=== PATIENT | female | born 1985 | race Caucasian/White ===

== ENCOUNTER 2017-04-21 20:21 | Emergency (ER) | payer OTHER ==
[~2017-04-21] VITALS: Ht 152.4 cm; Wt 91.2 kg
--- NOTE | 2017-04-21 21:50 | Diagnostic Imaging Report ---
EXAM: CHEST 2 VIEWS, PA and lateral DATE: 04/21/2017 9:10 PM Time stamp on exam: 4 hours INDICATION: Cough, congestion COMPARISON: None FINDINGS: LINES/TUBES: None LUNGS: No consolidations or edema. PLEURA: No effusions or pneumothorax. HEART AND MEDIASTINUM: Normal size and contour. BONES AND SOFT TISSUES: No acute findings. IMPRESSION: No evidence of pneumonia. Signed by: Dr. Sera Pang M.D. on 04/21/2017 9:46 PM
[2017-04-21 22:22] VITALS: BP 133/84
== END 2017-04-21 22:24 | disposition home or self-care (01) ==
LOC: ER 20:21
DX: R50.9 Fever, unspecified (principal); R05 Cough; J02.9 Acute pharyngitis, unspecified; J01.00 Acute maxillary sinusitis, unspecified
CPT/HCPCS: 71020; 87400; 99283

== ENCOUNTER 2018-02-06 20:01 | Emergency (ER) | payer OTHER ==
[~2018-02-06] VITALS: Ht 152.4 cm; Wt 85.7 kg
--- OUTSIDE RECORDS SUMMARY | 2018-02-06 20:03 | XMS REPORT | Clinical Summary ---
Author Author [facility] Address Unknown Phone Unavailable Care Team Providers Care Dental Hygiene Instructor Name Role Phone Nan Brand MD PCP Unavailable Allergies Active Allergy Reactions Severity Noted Date Comments Aspirin 10/04/2017 Penicillins 10/04/2017 Current Medications Prescription Sig. Disp. Refills Start End Date Status Date meclizine (ANTIVERT) 25 Take 1 tablet (25 mg 15 tablet 0 10/05/19 Active mg tablet total) by mouth 3 (three) 18 times a day as needed for dizziness or nausea for up to 15 doses. ondansetron ODT (ZOFRAN Take 1 tablet (4 mg 15 tablet 0 10/05/19 Active ODT) 4 MG disintegrating total) by mouth every 8 18 tablet (eight) hours as needed for nausea or vomiting for up to 15 doses. Active Problems Not on file Encounters Date Type Specialty Care Team Description 10/04/2017 Emergency Emergency Medicine Martin Elder, Vertigo (Primary Dx); DO Non-intractable vomiting with nausea, unspecified vomiting type after 02/05/2017 Social History Tobacco Use Types Packs/Day Years Used Date Never Smoker Smokeless Tobacco: Never Used Alcohol Use Drinks/Week oz/Week Comments No Sex Assigned at Date Recorded Not on file Last Filed Vital Signs Vital Sign Reading Time Taken Blood Pressure 115/85 10/04/2017 1:17 PM CDT Pulse 77 10/04/2017 1:17 PM CDT Temperature 36.4 C (97.5 F) 10/04/2017 1:17 PM CDT Respiratory Rate 20 10/04/2017 1:17 PM CDT Oxygen Saturation 99% 10/04/2017 1:17 PM CDT Inhaled Oxygen - - Concentration Weight 87.1 kg (192 lb) 10/04/2017 10:04 AM CDT Height 152.4 cm (5') 10/04/2017 10:04 AM CDT Body Mass Index 37.5 10/04/2017 10:04 AM CDT Plan of Treatment Health Maintenance Due Date Last Done Comments CERVICAL CANCER SCREENING 11/13/2004 INFLUENZA VACCINE 11/08/2017 Procedures Procedure Name Priority Date/Time Associated Diagnosis Comments CT HEAD WO CONTRAST STAT 10/04/2017 Results for this 12:01 PM CDT procedure are in the results section. ECG 12-LEAD STAT 10/04/2017 Results for this 10:28 AM CDT procedure are in the results section. ZZESTIMATED GFR STAT 10/04/2017 Results for this 10:27 AM CDT procedure are in the results section. B NATRIURETIC PEPTIDE STAT 10/04/2017 Results for this 10:27 AM CDT procedure are in the results section. TROPONIN STAT 10/04/2017 Results for this 10:27 AM CDT procedure are in the results section. COMPREHENSIVE METABOLIC STAT 10/04/2017 Results for this PANEL 10:27 AM CDT procedure are in the results section. HC COMPLETE BLD COUNT STAT 10/04/2017 Results for this W/AUTO DIFF 10:27 AM CDT procedure are in the results section. POC GLUCOSE Routine 10/04/2017 Results for this 10:10 AM CDT procedure are in the results section. after 02/05/2017 Results * CT Head Wo Contrast (10/04/2017 12:01 PM) Narrative Performed At EXAMINATION: CT HEAD WO CONTRAST RADIANT CLINICAL HISTORY: dizzy COMPARISON:None TECHNIQUE: Noncontrast enhanced images of the brain were obtained from the skull base to the vertex. Both soft tissue and bone reconstruction algorithms were performed. CT imaging was performed with iterative reconstruction technique and/or automated exposure control to reduce radiation dose. FINDINGS: The brain parenchyma is unremarkable. The hoffman-white matter differentiation is preserved. No evidence of acute intra or extra-axial hemorrhage, mass, mass effect or acute territorial infarction. There is no acute hydrocephalus. Basal cisterns are patent. No acute soft tissue hematoma or laceration. Paranasal sinuses shows no acute air-fluid levels. Mild mucoperiosteal thickening ethmoid air cells Mastoid air cells are clear.No skull fractures or aggressive bony lesions. IMPRESSION: No acute intracranial abnormality identified. Mild chronic appearing ethmoid sinusitis [id number] Procedure Note Hm Interface, Radiology Results Incoming - 10/04/2017 12:11 PM CDT EXAMINATION: CT HEAD WO CONTRAST CLINICAL HISTORY: dizzy COMPARISON: None TECHNIQUE: Noncontrast enhanced images of the brain were obtained from the skull base to the vertex. Both soft tissue and bone reconstruction algorithms were performed. CT imaging was performed with iterative reconstruction technique and/or automated exposure control to reduce radiation dose. FINDINGS: The brain parenchyma is unremarkable. The hoffman-white matter differentiation is preserved. No evidence of acute intra or extra-axial hemorrhage, mass, mass effect or acute territorial infarction. There is no acute hydrocephalus. Basal cisterns are patent. No acute soft tissue hematoma or laceration. Paranasal sinuses shows no acute air-fluid levels. Mild mucoperiosteal thickening ethmoid air cells Mastoid air cells are clear. No skull fractures or aggressive bony lesions. IMPRESSION: No acute intracranial abnormality identified. Mild chronic appearing ethmoid sinusitis [id number] Performing Organization Address [facility] Phone Number [facility] [address] [place] [address] * ECG 12 lead (10/04/2017 10:28 AM) Ventricular rate 84 [facility] Atrial rate 84 [facility] DC interval 162 [facility] QRSD interval 80 [facility] QT interval 360 [facility] QTC interval 425 [facility] P axis 1 20 [facility] QRS axis 1 41 [facility] T wave axis 27 [facility] EKG impression Normal sinus rhythm-Cannot [facility] rule out Anterior infarct , age undetermined-Abnormal ECG-In automated comparison with ECG of 26-AUG-2014 20:18,-No significant change was found- Performing Organization Address [facility] Phone Number [facility] [address] [place] [address] * Estimated GFR (10/04/2017 10:27 AM) GFR Non Af Amer >90 mL/min/1.73 m2 [facility] DEPARTMENT OF PATHOLOGY AND GENOMIC MEDICINE GFR Af Amer >90 mL/min/1.73 m2 [facility] DEPARTMENT OF Comment: PATHOLOGY AND Chronic kidney disease: <60 GENOMIC MEDICINE mL/min/1.73m2 Kidney failure: <15 mL/min/1.73m2 The estimated GFR is calculated from the IDMS-traceable Modification of Diet in Renal Disease Equation. The accuracy of the calculation is poor when the creatinine is normal. Calculated values >90 mL/min/1.73m2 are not reported. This equation has not been validated in children (<18 years), women, the elderly (>70 years), or ethnic groups other than Caucasians and Americans. Specimen Plasma specimen Performing Organization Address City/[facility] [place] [address] PATHOLOGY AND [facility] * Troponin (10/04/2017 10:27 AM) Troponin <0.30 0.00 - 0.30 ng/mL [facility] DEPARTMENT OF Comment: PATHOLOGY AND 0.11 - 1.49 GENOMIC MEDICINE ng/mlMay indicate increased risk of acute coronary syndrome. >=1.5 ng/ml Consistent with acute myocardial infarction. The diagnostic value of a single normal or non-diagnostic result is questionable.Serial samples at 2-6 hour intervals are required to rule out acute myocardial injury. Specimen Plasma specimen Performing Organization Address City/[facility] Cent[facility] Phone Number [place] [phone] PATHOLOGY AND [facility]IC[facility] * CBC with platelet and differential (10/04/2017 10:27 AM) WBC 8.0 4.2 - 11.0 k/uL [facility] DEPARTMENT OF PATHOLOGY AND GENOMIC MEDICINE RBC 4.62 4.04 - 5.86 m/uL [facility] DEPARTMENT OF PATHOLOGY AND GENOMIC MEDICINE HGB 13.3 11.5 - 15.3 g/dL [facility] DEPARTMENT OF PATHOLOGY AND GENOMIC MEDICINE HCT 40.5 34.0 - 45.0 % [facility] DEPARTMENT OF PATHOLOGY AND GENOMIC MEDICINE MCV 87.7 80.0 - 98.0 fL [facility] [place] DEPARTMENT OF PATHOLOGY AND GENOMIC MEDICINE MCH 28.8 27.0 - 34.0 pg [facility] DEPARTMENT OF PATHOLOGY AND GENOMIC MEDICINE MCHC 32.8 31.5 - 36.5 g/dL [facility] DEPARTMENT OF PATHOLOGY AND GENOMIC MEDICINE RDW - SD 38.8 37.0 - 51.0 fL [facility] [place] [place] DEPARTMENT OF PATHOLOGY AND GENOMIC MEDICINE MPV 9.3 7.4 - 10.4 fL [facility] DEPARTMENT OF PATHOLOGY AND GENOMIC MEDICINE Platelet count 396 150 - 400 k/uL [facility] DEPARTMENT OF PATHOLOGY AND GENOMIC MEDICINE Nucleated RBC 0.00 /100 WBC [facility] DEPARTMENT OF PATHOLOGY AND GENOMIC MEDICINE Neutrophils 60.4 36.0 - 66.0 % [facility] DEPARTMENT OF PATHOLOGY AND GENOMIC MEDICINE Lymphocytes 27.8 24.0 - 44.0 % [facility] DEPARTMENT OF PATHOLOGY AND GENOMIC MEDICINE Monocytes 7.8 (H) 0.0 - 6.0 % [facility] [place] [place] DEPARTMENT OF PATHOLOGY AND GENOMIC MEDICINE Eosinophils 2.8 0.0 - 6.0 % [facility] DEPARTMENT OF PATHOLOGY AND GENOMIC MEDICINE Basophils 0.8 0.0 - 1.2 % [facility] [place] DEPARTMENT OF PATHOLOGY AND GENOMIC MEDICINE Immature granulocytes 0.4 0.0 - 1.0 % [facility] [place] DEPARTMENT OF PATHOLOGY AND GENOMIC MEDICINE Specimen Blood Performing Organization Address City/[facility]/[place] [address] PATHOLOGY AND [facility] MEDICINE * B natriuretic peptide (10/04/2017 10:27 AM) BNP 12 0 - 100 pg/mL [facility] [place] DEPARTMENT PATHOLOGY AND GENOMIC MEDICINE Specimen Blood Performing Organization Address City/[facility] [place] [address] PATHOLOGY AND [facility] * Comprehensive metabolic panel (10/04/2017 10:27 AM) Sodium 139 135 - 150 mEq/L [facility] [place] DEPARTMENT OF PATHOLOGY AND GENOMIC MEDICINE Potassium 4.0 3.5 - 5.0 mEq/L [facility] DEPARTMENT OF PATHOLOGY AND GENOMIC MEDICINE Chloride 106 98 - 112 mEq/L [facility] DEPARTMENT OF PATHOLOGY AND GENOMIC MEDICINE CO2 20 (L) 24 - 31 mmol/L [facility] DEPARTMENT OF PATHOLOGY AND GENOMIC MEDICINE Anion gap 13@ANIO 7 - 15 mEq/L [facility] [place] DEPARTMENT OF PATHOLOGY AND GENOMIC MEDICINE BUN 8 7 - 18 mg/dL [facility] DEPARTMENT OF PATHOLOGY AND GENOMIC MEDICINE Creatinine 0.70 0.50 - 0.90 mg/dL [facility] DEPARTMENT OF PATHOLOGY AND GENOMIC MEDICINE Glucose 125 (H) 65 - 100 mg/dL [facility] DEPARTMENT OF PATHOLOGY AND GENOMIC MEDICINE Calcium 9.4 8.3 - 10.2 mg/dL [facility] DEPARTMENT OF PATHOLOGY AND GENOMIC MEDICINE Protein 7.3 6.3 - 8.3 g/dL [facility] DEPARTMENT OF PATHOLOGY AND GENOMIC MEDICINE Albumin 3.9 3.5 - 5.0 g/dL [facility] DEPARTMENT OF PATHOLOGY AND GENOMIC MEDICINE A/G ratio 1.1 0.7 - 3.8 [facility] DEPARTMENT OF PATHOLOGY AND GENOMIC MEDICINE Alkaline phosphatase 91 0 - 104 U/L [facility] DEPARTMENT OF PATHOLOGY AND GENOMIC MEDICINE AST 20 10 - 35 U/L [facility] [place] DEPARTMENT OF PATHOLOGY AND GENOMIC MEDICINE ALT 17 5 - 50 U/L [facility] DEPARTMENT OF PATHOLOGY AND GENOMIC MEDICINE Total bilirubin 0.3 0.2 - 1.2 mg/dL [facility] DEPARTMENT OF PATHOLOGY AND GENOMIC MEDICINE Specimen Plasma specimen Performing Organization Address City/State/Zipcode Phone Number [place] [phone] [place] [phone] PATHOLOGY AND GENOMIC MEDICINE * POC glucose (10/04/2017 10:10 AM) POC glucose 109 (H) 65 - 100 mg/dL [facility] DEPARTMENT OF Comment: PATHOLOGY AND Meter ID: [id number] GENOMIC MEDICINE [employer] Pastor: Lia Manuel Performing Organization Address City/State/[facility] Phone Number [facility] DEPARTMENT OF [address] [place] [address] PATHOLOGY AND GENOMIC MEDICINE after 02/05/2017 Insurance Payer Benefit Subscriber ID Type Phone Address Plan / Group PEREZ EXCHANGE PEREZ xxxxxxxxxx Exchange [employer] E EXCHANGE
--- OUTSIDE RECORDS SUMMARY | 2018-02-06 20:04 | XMS REPORT | Summary of Care ---
Author Organization Unknown Address Unknown Phone Unavailable Encounter [facility] Jostin(SHIVA) [id number] Date(s): 05/11/14 - 05/11/[address] Discharge Disposition: Not Seen Physician Attending: Naty Carreno MD Reason for Visit ANXIETY Vital Signs Most recent to 1 oldest [Reference Range]: Height 152.4 cm (05/11/14 2:02 AM) Temperature Oral 98.1 DegF [96.4-99.1 DegF] (05/11/14 2:02 AM) Systolic Blood 119 mmHg Pressure [90-140 (05/11/14 2:02 AM) mmHg] Diastolic Blood 82 mmHg Pressure [60-90 (05/11/14 2:02 AM) mmHg] Respiratory Rate 20 BRMIN [14-20 BRMIN] (05/11/14 2:02 AM) Peripheral Pulse 85 bpm Rate [60-100 bpm] (05/11/14 2:02 AM) Weight 84.091 kg (05/11/14 2:02 AM) Body Mass Index 36.21 m2 (05/11/14 2:02 AM) Problem List No data available for this section Allergies, Adverse Reactions, Alerts Substance Reaction Severity Status aspirin Active penicillins Active Medications No data available for this section Medications Administered During Your Visit No data available for this section Immunizations No data available for this section
--- OUTSIDE RECORDS SUMMARY | 2018-02-06 20:04 | XMS REPORT | Summary of Care ---
Author Author [facility] Organization [facility] Address Unknown Phone Unavailable Encounter WENDI Frankel(SHIVA) [id number] Date(s): 11/11/16 - 11/11/16 [facility] [address] [place] [address]- Discharge Diagnosis: Metrorrhagia Discharge Disposition: Home or Self Care Attending Physician: Geovanny Leung MD Vital Signs 1 2 3 Most recent to oldest [Reference Range]: 152.4 cm (11/11/16 6:54 PM) Height 98.4 DegF (11/11/16 9:03 PM) 98.2 DegF (11/11/16 6:54 PM) Temperature Oral [96.4-99.1 DegF] 111/75 mmHg (11/11/16 9:03 PM) 121/78 mmHg (11/11/16 8:15 PM) 122/80 mmHg (11/11/16 8:00 PM) Blood Pressure [90-140/60-90 mmHg] 18 BRMIN (11/11/16 9:03 PM) 20 BRMIN (11/11/16 8:15 PM) 20 BRMIN (11/11/16 8:00 PM) Respiratory Rate [14-20 BRMIN] 93 bpm (11/11/16 9:03 PM) 89 bpm (11/11/16 6:54 PM) Peripheral Pulse Rate [60-100 bpm] 90.318 kg (11/11/16 6:54 PM) Weight 38.89 m2 (11/11/16 6:54 PM) Body Mass Index Problem List Condition Effective Dates Status Health Status Informant High Active cholesterol(Confirme d) Allergies, Adverse Reactions, Alerts Substance Reaction Severity Status aspirin Active penicillins Active Medications Saline Flush 0.9% 10 mL, Route: IVP, Drug Form: INJ, Dosing Weight 90.318, kg, PRN, PRN Line Flush , Start date: 11/11/16 19:50:00 CDT, Duration: 1 day, Stop date: 11/12/16 19:49: 00 CDT Notes: (Same as: BD Posiflush) Start Date: 11/11/16 Stop Date: 11/11/16 Status: Discontinued Results ELECTROLYTES Most recent to 1 oldest [Reference Range]: Sodium Lvl [135-145 139 mEq/L mEq/L] (11/11/16 8:08 PM) Potassium Lvl 3.9 mEq/L [3.5-5.1 mEq/L] (11/11/16 8:08 PM) Chloride Lvl [95-109 103 mEq/L mEq/L] (11/11/16 8:08 PM) CO2 [24-32 mEq/L] 30 mEq/L (11/11/16 8:08 PM) AGAP [10.0-20.0 9.9 mEq/L mEq/L] *LOW* (11/11/16 8:08 PM) CHEM PANEL Most recent to 1 oldest [Reference Range]: Creatinine Lvl 0.92 mg/dL [0.50-1.40 mg/dL] (11/11/16 8:08 PM) eGFR 83 mL/min/1.73m2 1 *NA* (11/11/16 8:08 PM) BUN [7-22 mg/dL] 11 mg/dL (11/11/16 8:08 PM) B/C Ratio [6-25] 12 (11/11/16 8:08 PM) Glucose Lvl [70-99 89 mg/dL mg/dL] (11/11/16 8:08 PM) Total Protein 8.0 g/dL [6.4-8.4 g/dL] (11/11/16 8:08 PM) Albumin Lvl [3.5-5.0 3.8 g/dL g/dL] (11/11/16 8:08 PM) Globulin [2.7-4.2 4.2 g/dL g/dL] (11/11/16 8:08 PM) A/G Ratio [0.7-1.6] 0.9 (11/11/16 8:08 PM) Calcium Lvl 9.2 mg/dL [8.5-10.5 mg/dL] (11/11/16 8:08 PM) ALT [0-65 unit/L] 27 unit/L (11/11/16 8:08 PM) AST [0-37 unit/L] 16 unit/L (11/11/16 8:08 PM) Alk Phos [39-136 72 unit/L unit/L] (11/11/16 8:08 PM) Bili Total [0.2-1.3 0.2 mg/dL mg/dL] (11/11/16 8:08 PM) 1Result Comment: The eGFR is calculated using the CKD-EPI formula. In most young, healthy individuals the eGFR will be >90 mL/min/1.73m2. The eGFR declines with age. An eGFR of 60-89 may be normal in some populations, particularly the elderly, for whom the CKD-EPI formula has not been extensively validated. Use of the eGFR is not recommended in the following populations: Individuals with unstable creatinine concentrations, including patients and those with serious co-morbid conditions. Patients with extremes in muscle mass or diet. The data above are obtained from the National Kidney Disease Education Program ( NKDEP) which additionally recommends that when the eGFR is used in patients with extremes of body mass index for purposes of drug dosing, the eGFR should be mul tiplied by the estimated BMI. ENDOCRINOLOGY Most recent to 1 oldest [Reference Range]: S Preg [Negative] Negative *NA* (11/11/16 8:08 PM) HEMATOLOGY Most recent to 1 oldest [Reference Range]: WBC [3.7-10.4 K/CMM] 9.7 K/CMM (11/11/16 8:08 PM) RBC [4.20-5.40 4.22 M/CMM M/CMM] (11/11/16 8:08 PM) Hgb [12.0-16.0 g/dL] 13.1 g/dL (11/11/16 8:08 PM) Hct [36.0-48.0 %] 37.4 % (11/11/16 8:08 PM) MCV [80.0-98.0 fL] 88.5 fL (11/11/16 8:08 PM) MCH [27.0-31.0 pg] 31.1 pg *HI* (11/11/16 8:08 PM) MCHC [32.0-36.0 35.1 g/dL g/dL] (11/11/16 8:08 PM) RDW [11.5-14.5 %] 12.8 % (11/11/16 8:08 PM) Platelet [133-450 417 K/CMM K/CMM] (11/11/16 8:08 PM) MPV [7.4-10.4 fL] 7.7 fL (11/11/16 8:08 PM) Segs [45.0-75.0 %] 54.5 % (11/11/16 8:08 PM) Lymphocytes 35.2 % [20.0-40.0 %] (11/11/16 8:08 PM) Monocytes [2.0-12.0 6.5 % %] (11/11/16 8:08 PM) Eosinophils [0.0-4.0 2.9 % %] (11/11/16 8:08 PM) Basophils [0.0-1.0 0.9 % %] (11/11/16 8:08 PM) Segs-Bands # 5.3 K/CMM [1.5-8.1 K/CMM] (11/11/16 8:08 PM) Lymphocytes # 3.4 K/CMM [1.0-5.5 K/CMM] (11/11/16 8:08 PM) Monocytes # [0.0-0.8 0.6 K/CMM K/CMM] (11/11/16 8:08 PM) Eosinophils # 0.3 K/CMM [0.0-0.5 K/CMM] (11/11/16 8:08 PM) Basophils # [0.0-0.2 0.1 K/CMM K/CMM] (11/11/16 8:08 PM) Immunizations No data available for this section Procedures No data available for this section Social History Social History Type Response Smoking Status Never smoker; Exposure to Tobacco Smoke None; Cigarette Smoking Last 365 Days No; Reg Smoking Cessation Counseling No Assessment and Plan No data available for this section
--- OUTSIDE RECORDS SUMMARY | 2018-02-06 20:04 | XMS REPORT | Summary of Care ---
Author Author [facility] Organization [facility] Address Unknown Phone Unavailable Encounter WENDI Frankel(SHIVA) [id number] Date(s): 02/22/17 - 02/22/[address] [facility] [address] [place] [address]- [phone] Discharge Diagnosis: Back pain Discharge Disposition: Home or Self Care Attending Physician: Ml Cedillo MD Vital Signs 1 2 3 Most recent to oldest [Reference Range]: 152.4 cm (02/22/17 7:43 PM) Height 98.1 DegF (02/22/17 7:43 PM) Temperature Oral [96.4-99.1 DegF] 126/85 mmHg (02/22/17 10:04 PM) 118/77 mmHg (02/22/17 8:51 PM) 118/81 mmHg (02/22/17 8:40 PM) Blood Pressure [90-140/60-90 mmHg] 17 BRMIN (02/22/17 10:04 PM) 18 BRMIN (02/22/17 8:51 PM) 18 BRMIN (02/22/17 8:40 PM) Respiratory Rate [14-20 BRMIN] 88 bpm (02/22/17 10:04 PM) 95 bpm (02/22/17 8:51 PM) 86 bpm (02/22/17 8:40 PM) Peripheral Pulse Rate [60-100 bpm] 91.506 kg (02/22/17 7:43 PM) Weight 39.4 m2 (02/22/17 7:43 PM) Body Mass Index Problem List Condition Effective Dates Status Health Status Informant High Active cholesterol(Confirme d) Allergies, Adverse Reactions, Alerts Substance Reaction Severity Status penicillins Active aspirin Active Medications Saline Flush 0.9% 10 mL, Route: IVP, Drug Form: INJ, Dosing Weight 90.318, kg, PRN, PRN Line Flush , Start date: 02/22/17 19:44:00 CLAIMS VICE PRESIDENT, Duration: 1 day, Stop date: 02/23/17 19:43: 00 CLAIMS VICE PRESIDENT Notes: (Same as: BD Posiflush) Start Date: 02/22/17 Stop Date: 02/22/17 Status: Discontinued Tylenol 650 mg, Route: PO, Drug form: TAB, ONCE, Dosing Weight 91.506, kg, Priority: STA T, Start date: 02/22/17 20:40:00 CLAIMS VICE PRESIDENT, Stop date: 02/22/17 20:40:00 CLAIMS VICE PRESIDENT Start Date: 02/22/17 Stop Date: 02/22/17 Status: Completed Results ELECTROLYTES Most recent to 1 oldest [Reference Range]: Sodium Lvl [135-145 139 mEq/L mEq/L] (02/22/17 7:59 PM) Potassium Lvl 4.5 mEq/L [3.5-5.1 mEq/L] (02/22/17 7:59 PM) Chloride Lvl [95-109 105 mEq/L mEq/L] (02/22/17 7:59 PM) CO2 [24-32 mEq/L] 28 mEq/L (02/22/17 7:59 PM) AGAP [10.0-20.0 10.5 mEq/L mEq/L] (02/22/17 7:59 PM) CHEM PANEL Most recent to 1 oldest [Reference Range]: Creatinine Lvl 0.85 mg/dL [0.50-1.40 mg/dL] (02/22/17 7:59 PM) eGFR 90 mL/min/1.73m2 1 *NA* (02/22/17 7:59 PM) BUN [7-22 mg/dL] 14 mg/dL (02/22/17 7:59 PM) B/C Ratio [6-25] 16 (02/22/17 7:59 PM) Glucose Lvl [70-99 110 mg/dL mg/dL] *HI* (02/22/17 7:59 PM) Total Protein 7.9 g/dL [6.4-8.4 g/dL] (02/22/17 7:59 PM) Albumin Lvl [3.5-5.0 3.7 g/dL g/dL] (02/22/17 7:59 PM) Globulin [2.7-4.2 4.2 g/dL g/dL] (02/22/17 7:59 PM) A/G Ratio [0.7-1.6] 0.9 (02/22/17 7:59 PM) Calcium Lvl 9.3 mg/dL [8.5-10.5 mg/dL] (02/22/17 7:59 PM) ALT [0-65 unit/L] 21 unit/L (02/22/17 7:59 PM) AST [0-37 unit/L] 16 unit/L (02/22/17 7:59 PM) Alk Phos [39-136 100 unit/L unit/L] (02/22/17 7:59 PM) Bili Total [0.2-1.3 0.2 mg/dL mg/dL] (02/22/17 7:59 PM) Lipase Lvl [73-393 163 unit/L unit/L] (02/22/17 7:59 PM) 1Result Comment: The eGFR is calculated [...] be mul tiplied by the estimated BMI. URINE CHEM Most recent to 1 oldest [Reference Range]: U Preg [Negative] Negative (02/22/17 7:59 PM) URINE AND STOOL Most recent to 1 oldest [Reference Range]: UA Turbidity [Clear] Clear (02/22/17 7:59 PM) UA Color [Yellow] Light Yellow *NA* (02/22/17 7:59 PM) UA pH [5.0-8.0] 6.0 (02/22/17 7:59 PM) UA Spec Grav 1.006 [<=1.030] (02/22/17 7:59 PM) UA Glucose [Negative Negative mg/dL mg/dL] *NA* (02/22/17 7:59 PM) UA Blood [Negative] Moderate *ABN* (02/22/17 7:59 PM) UA Ketones [Negative Negative mg/dL mg/dL] *NA* (02/22/17 7:59 PM) UA Protein [Negative Negative mg/dL mg/dL] (02/22/17 7:59 PM) UA Urobilinogen <=1.0 mg/dL [0.1-1.0 mg/dL] *NA* (02/22/17 7:59 PM) UA Bili [Negative] Negative *NA* (02/22/17 7:59 PM) UA Leuk Est Trace [Negative] *ABN* (02/22/17 7:59 PM) UA Nitrite Negative [Negative] (02/22/17 7:59 PM) UA WBC [0-5 /HPF] 1 /HPF (02/22/17 7:59 PM) UA RBC [0-2 /HPF] 2 /HPF (02/22/17 7:59 PM) UA Bacteria [None Occasional /HPF Seen /HPF] *NA* (02/22/17 7:59 PM) UA Sq Epi [Few /LPF] Few /LPF *NA* (02/22/17 7:59 PM) HEMATOLOGY Most recent to 1 oldest [Reference Range]: WBC [3.7-10.4 K/CMM] 10.7 K/CMM *HI* (02/22/17 7:59 PM) RBC [4.20-5.40 4.92 M/CMM M/CMM] (02/22/17 7:59 PM) Hgb [12.0-16.0 g/dL] 14.6 g/dL (02/22/17 7:59 PM) Hct [36.0-48.0 %] 42.9 % (02/22/17 7:59 PM) MCV [80.0-98.0 fL] 87.3 fL (02/22/17 7:59 PM) MCH [27.0-31.0 pg] 29.6 pg (02/22/17 7:59 PM) MCHC [32.0-36.0 33.9 g/dL g/dL] (02/22/17 7:59 PM) RDW [11.5-14.5 %] 12.7 % (02/22/17 7:59 PM) Platelet [133-450 394 K/CMM K/CMM] (02/22/17 7:59 PM) MPV [7.4-10.4 fL] 7.8 fL (02/22/17 7:59 PM) Segs [45.0-75.0 %] 61.4 % (02/22/17 7:59 PM) Lymphocytes 28.1 % [20.0-40.0 %] (02/22/17 7:59 PM) Monocytes [2.0-12.0 6.5 % %] (02/22/17 7:59 PM) Eosinophils [0.0-4.0 3.2 % %] (02/22/17 7:59 PM) Basophils [0.0-1.0 0.8 % %] (02/22/17 7:59 PM) Segs-Bands # 6.5 K/CMM [1.5-8.1 K/CMM] (02/22/17 7:59 PM) Lymphocytes # 3.0 K/CMM [1.0-5.5 K/CMM] (02/22/17 7:59 PM) Monocytes # [0.0-0.8 0.7 K/CMM K/CMM] (02/22/17 7:59 PM) Eosinophils # 0.3 K/CMM [0.0-0.5 K/CMM] (02/22/17 7:59 PM) Basophils # [0.0-0.2 0.1 K/CMM K/CMM] (02/22/17 7:59 PM) MOLECULAR DIAGNOSTIC Most recent to 1 oldest [Reference Range]: Source APTIMA Vaginal *NA* (02/22/17 9:03 PM) N gonorrhea by Amp Negative Det (APTIMA) *NA* [Negative] (02/22/17 9:03 PM) C trachomatis by Amp Negative Det (APTIMA) *NA* [Negative] (02/22/17 9:03 PM) Immunizations No data available for this section Procedures No data available for this section Social History Social History Type Response Smoking Status Never smoker; Exposure to Tobacco Smoke None; Cigarette Smoking Last 365 Days No; Reg Smoking Cessation Counseling No Assessment and Plan No data available for this section
--- OUTSIDE RECORDS SUMMARY | 2018-02-06 20:04 | XMS REPORT ---
Author Author Admin, [facility] Address Unknown Phone Unavailable Allergies, Adverse Reactions, Alerts Allergy Name Reaction Description Start Date Severity Status Provider ASPIRIN Critical Active Doug ACOSTA PENICILLIN Critical Active Doug ACOSTA Conditions or Problems Problem Name Problem Code Onset Date Status Entry Date Provider Comment Standard Description Annotate Anal pruritus 698.0 Active Sophia Zamorano D.O. Pruritus ani Constipation 564.00 Active Sophia Zamorano D.O. Constipation, unspecified Frequency, urinary 788.41 Active Florinda Miller MASTER BREWER Urinary frequency BMI 33.0-33.9 Active Jj Cosme MACHINE GUIDE BASE WINDER Body Mass Index 33.0-33.9, adult Hip pain, right 719.45 Active Margo Nolan MD Pain in joint involving pelvic region and thigh Migraine headache with aura 346.00 Active Margo Nolan MD Migraine with aura, without mention of intractable migraine, without mention of status migrainosus OVARIAN CYST 620.2 Active Janell Corrigan MD Other and unspecified ovarian cyst ABNORMAL PAP SMEAR, LGSIL, CERVIX 795.03 Active Margo Nolan MD Papanicolaou smear of cervix with low grade squamous intraepithelial lesion (LGSIL) followed by private obstetrics/gynecology nurse had cryo procedure on cervix 04/17/2015 MENOMETRORRHAGIA 626.2 Active Doug ACOSTA Excessive or frequent menstruation OVER WEIGHT 278.00 Active Doug ACOSTA Obesity, unspecified TOBACCO ABUSE 305.1 Active Doug ACOSTA Tobacco use disorder Acute anal fissure ICD-565.0 Inactive Samuel Mccoy MD (res) Vaginal discharge ICD-623.5 Inactive Samuel Mccoy MD (res) Nausea ICD-787.02 Inactive Samuel Mccoy MD (res) Sinus congestion ICD-478.19 Inactive Jj Cosme MACHINE GUIDE BASE WINDER NECK PAIN ICD-723.1 Inactive Jj Cosme MACHINE GUIDE BASE WINDER URI ICD-465.9 Inactive Jj Cosme MACHINE GUIDE BASE WINDER Sore throat ICD-462 Inactive Samuel Mccoy MD (res) PELVIC PAIN ICD-789.09 Inactive Margo Nolan MD BACTERIAL VAGINITIS 616.10 Inactive Doug ACOSTA Vaginitis and vulvovaginitis, unspecified BACTERIAL VAGINITIS ICD-616.10 Inactive Doug ACOSTA FAMILY PLANNING ICD-V25.09 Inactive Margo Nolan MD Acute anal fissure 565.0 Resolved Sophia Zamorano D.O. Anal fissure Vaginal discharge 623.5 Resolved Sophia Zamorano D.O. Leukorrhea, not specified as infective Nausea 787.02 Resolved Carlos Trevino MD Nausea alone Sinus congestion 478.19 Resolved Jj Cosme APRN Other disease of nasal cavity and sinuses NECK PAIN 723.1 Resolved Jj Cosme APRN Cervicalgia URI 465.9 Resolved Duynhan Ba HEATHN Acute upper respiratory infections of unspecified site Sore throat 462 Resolved Carlos Trevino MD Acute pharyngitis PELVIC PAIN 789.09 Resolved Margo Nolan MD Abdominal pain, other specified site; multiple sites FAMILY PLANNING V25.09 Resolved Margo Nolan MD Encounter for other general counseling and advice on contraceptive management Medication List Medication Instructions Start Date Stop Date Generic Name NDC Status Provider Patient Instruction CALMOSEPTINE 0.44-20.625 % EXTERNAL OINTMENT apply 2-4 times daily MENTHOL-ZINC OXIDE 23543871747 Active Sophia Zamorano D.O. Active COLACE 100 MG ORAL CAPSULE 1 by mouth twice a day DOCUSATE SODIUM 36214724532 Active Samuel Mccoy MD (res) Active MIRALAX ORAL PACKET take 1 packet daily POLYETHYLENE GLYCOL 3350 [id number] Active Samuel Mccoy MD (res) Active DIFLUCAN 150 MG ORAL TABLET 1 by mouth DIFLUCAN 150 MG ORAL TABLET 128668 FLUCONAZOLE Inactive LAMISIL AT 1 % EXTERNAL CREAM apply to affected area twice a day LAMISIL AT 1 % EXTERNAL CREAM 643074 TERBINAFINE HCL Inactive METRONIDAZOLE 500 MG ORAL TABLET take 1 tablet twice daily for 7 days METRONIDAZOLE 500 MG ORAL TABLET 037280 METRONIDAZOLE Inactive BACTRIM DS 800-160 MG ORAL TABLET 1 tab by mouth twice a day BACTRIM DS 800-160 MG ORAL TABLET 757264 TRIMETHOPRIM-SULFAMETHOXAZOLE Inactive CLARITIN-D 12 HOUR 5-120 MG ORAL TABLET EXTENDED RELEASE 12 HOUR 1 by mouth twice a day as needed CLARITIN-D 12 HOUR 5-120 MG ORAL TABLET EXTENDED RELEASE 12 HOUR LORATADINE-PSEUDOEPHEDRINE Inactive FLONASE ALLERGY RELIEF 50 MCG/ACT NASAL SUSPENSION 1 sprays each nostril every day for 2 weeks FLONASE ALLERGY RELIEF 50 MCG/ACT NASAL SUSPENSION 0212864 FLUTICASONE PROPIONATE Inactive CYCLOBENZAPRINE HCL 10 MG ORAL TABLET 1 By Mouth three times a day as needed for muscle spasm CYCLOBENZAPRINE HCL 10 MG ORAL TABLET 759495 CYCLOBENZAPRINE HCL Inactive AMITRIPTYLINE HCL 25 MG ORAL TABLET 1 by mouth nightly at bedtime AMITRIPTYLINE HCL 25 MG ORAL TABLET 897082 AMITRIPTYLINE HCL Inactive CETIRIZINE HCL 10 MG ORAL TABLET CETIRIZINE HCL 10 MG ORAL TABLET 1375089 CETIRIZINE HCL Inactive IMITREX 25 MG ORAL TABLET Take 1-2 tablets by mouth once as needed for headache IMITREX 25 MG ORAL TABLET 334048 SUMATRIPTAN SUCCINATE Inactive NASONEX 50 MCG/ACT NASAL SUSPENSION 2 sprays each nostril every day NASONEX 50 MCG/ACT NASAL SUSPENSION 1853020 MOMETASONE FUROATE Inactive FLAGYL 500 MG ORAL TABLET 1 tab by mouth twice a day for 7 days FLAGYL 500 MG ORAL TABLET 372526 METRONIDAZOLE Inactive DIFLUCAN 150 MG ORAL TABLET 1 by mouth FLUCONAZOLE 43612430188 No Longer Active Sophia Zamorano D.O. Active LAMISIL AT 1 % EXTERNAL CREAM apply to affected area twice a day TERBINAFINE HCL 57109495777 No Longer Active Sophia Zamorano D.O. Active METRONIDAZOLE 500 MG ORAL TABLET take 1 tablet twice daily for 7 days METRONIDAZOLE 55875756066 No Longer Active Sophia Zamorano D.O. Active BACTRIM DS 800-160 MG ORAL TABLET 1 tab by mouth twice a day TRIMETHOPRIM-SULFAMETHOXAZOLE 79474354222 No Longer Active Carlos Trevino MD Active CLARITIN-D 12 HOUR 5-120 MG ORAL TABLET EXTENDED RELEASE 12 HOUR 1 by mouth twice a day as needed LORATADINE-PSEUDOEPHEDRINE 68301089995 No Longer Active Jj Cosme APRN Active FLONASE ALLERGY RELIEF 50 MCG/ACT NASAL SUSPENSION 1 sprays each nostril every day for 2 weeks FLUTICASONE PROPIONATE 45923487688 No Longer Active Jj Cosme APRN Active CYCLOBENZAPRINE HCL 10 MG ORAL TABLET 1 By Mouth three times a day as needed for muscle spasm CYCLOBENZAPRINE HCL 07475768381 No Longer Active Jj Cosme APRN Active AMITRIPTYLINE HCL 25 MG ORAL TABLET 1 by mouth nightly at bedtime AMITRIPTYLINE HCL 10320751481 No Longer Active Carlos Trevino MD Active CETIRIZINE HCL 10 MG ORAL TABLET CETIRIZINE HCL 26019328247 No Longer Active Jj Cosme APRN Active IMITREX 25 MG ORAL TABLET Take 1-2 tablets by mouth once as needed for headache SUMATRIPTAN SUCCINATE 06593676501 No Longer Active Carlos Trevino MD Active NASONEX 50 MCG/ACT NASAL SUSPENSION 2 sprays each nostril every day MOMETASONE FUROATE 25594731143 No Longer Active Jj Cosme APRN Active FLAGYL 500 MG ORAL TABLET 1 tab by mouth twice a day for 7 days METRONIDAZOLE 46417525208 No Longer Active Janell Corrigan MD Active Immunizations Vaccine Administration Date Value Standard Description influenza immunization (Flu Vax) has been administered given elsewhere influenza virus vaccine, unspecified formulation Vital Signs Date Name Value Unit Range Description blood pressure, diastolic 81 mm[Hg] BP dewitt blood pressure, systolic 115 mm[Hg] BP sys height E&M 62 [in_us] Bdy height pulse rate E&M 93 /min Heart rate respiratory rate E&M 16 /min Resp rate temperature E&M 98.6 [degF] Body temperature weight E&M 198.40 [lb_av] Weight Measured blood pressure, diastolic 87 mm[Hg] BP dewitt blood pressure, systolic 128 mm[Hg] BP sys height E&M 62 [in_us] Bdy height pulse rate E&M 92 /min Heart rate respiratory rate E&M 18 /min Resp rate temperature E&M 98.3 [degF] Body temperature weight E&M 201.60 [lb_av] Weight Measured blood pressure, diastolic 86 mm[Hg] BP dewitt blood pressure, systolic 119 mm[Hg] BP sys height E&M 62 [in_us] Bdy height pulse rate E&M 87 /min Heart rate respiratory rate E&M 20 /min Resp rate temperature E&M 98.6 [degF] Body temperature weight E&M 202.80 [lb_av] Weight Measured Diagnostic Results Date Name Value Unit Range Description Lab Report: CBC With Differential/Platelet, Lipid Panel, Panel [id number], C ... - Serology hepatitis C antibody, serum <0.1 0.0-0.9 Office Visit: Acute Visit [address] - Urinalysis pH, urine, semiquantitative 6.0 Lab Report: CBC With Differential/Platelet, Lipid Panel, Panel [id number], C ... - Hematology lymphocyte count, blood, automated 3.0 X10E3/UL 10*3/mm3 0.7-3.1 Office Visit: Acute Visit 3 [facility] - Urinalysis bilirubin, urine negative Lab Report: CBC With Differential/Platelet, Lipid Panel, Panel [id number], C ... - Hematology mean corpuscular volume, RBC 92 fL 79-97 Lab Report: CBC With Differential/Platelet, Lipid Panel, Panel [id number], C ... - Chemistry triglyceride, serum, fasting 52 mg/dL 0-149 Office Visit: Annual / Family Planning Female room 3 - Microbiology trichomonas vaginalis, genital, qualitative absent Lab Report: CBC With Differential/Platelet, Lipid Panel, Panel [id number], C ... - Hematology erythrocyte (RBC) count 4.66 X10E6/UL 10*6/mm3 3.77-5.28 Office Visit: Acute Visit [address] - Urinalysis appearance, urine clear Lab Report: CBC With Differential/Platelet, Lipid Panel, Panel [id number], C ... - Hematology platelet count 320 X10E3/UL 10*3/mm3 155-379 Lab Report: CBC With Differential/Platelet, Lipid Panel, Panel [id number], C ... - Serology HIV-1/HIV-2 Ab, serum Non Reactive Non Reactive Lab Report: CBC With Differential/Platelet, Lipid Panel, Panel [id number], C ... - Hematology red blood cell distribution width 13.2 % 12.3-15.4 Lab Report: CBC With Differential/Platelet, Lipid Panel, Panel [id number], C ... - Chemistry HDL cholesterol, serum 47 mg/dL >39 Office Visit: Annual / Family Planning Female room 3 - Microbiology microbial wet smear for fungus absent Office Visit: Acute Visit [address] - Urinalysis glucose, urine, semiquantitative negative Lab Report: CBC With Differential/Platelet, Lipid Panel, Panel [id number], C ... - Hematology eosinophils as percent of blood leukocytes 4 % 0-5 Lab Report: CBC With Differential/Platelet, Lipid Panel, Panel [id number], C ... - Chemistry Absolute Neutrophils 5.5 X10E3/UL 10*3/uL 1.4-7.0 Lab Report: CBC With Differential/Platelet, Lipid Panel, Panel [id number], C ... - Hematology basophil count, absolute 0.1 x10E3/uL 0.0-0.2 Office Visit: Annual / Family Planning Female room 3 - Microbiology clue cells on wet mount present Lab Report: CBC With Differential/Platelet, Lipid Panel, Panel [id number], C ... - Chemistry hepatitis B surface antigen Negative Negative LDL cholesterol, serum 100 mg/dL 0-99 Office Visit: Acute Visit [address] - Urinalysis nitrite, urine, semiquantitative negative Lab Report: CBC With Differential/Platelet, Lipid Panel, Panel [id number], C ... - Hematology monocytes as percent of blood leukocytes 6 % 4-12 Lab Report: Pap IG, rfx HPV ASCU - Lab Human Papillomavirus test result HPVNotTested Lab Report: Hemoglobin A1c, Urine Culture, Routine, Result - Urinalysis urine culture No growth Lab Report: CBC With Differential/Platelet, Lipid Panel, Panel [id number], C ... - Chemistry cholesterol, serum 157 mg/dL 100-199 Lab Report: CBC With Differential/Platelet, Lipid Panel, Panel [id number], C ... - Hematology mean corpuscular hemoglobin concentration, RBC 33.3 G/DL % 31.5-35.7 Office Visit: Acute Visit [facility] - Urinalysis leukocyte esterase, urine, by dipstick negative Lab Report: CBC With Differential/Platelet, Lipid Panel, Panel [id number], C ... - Hematology hemoglobin, blood 14.3 g/dL 11.1-15.9 leukocyte count, blood 9.5 X10E3/UL 10*3/mm3 3.4-10.8 Office Visit: Acute Visit [facility] - Urinalysis protein, urine, semiquantitative (dipstick) trace Lab Report: CBC With Differential/Platelet, Lipid Panel, Panel [id number], C ... - Hematology hematocrit, blood 42.9 % 34.0-46.6 Lab Report: CBC With Differential/Platelet, Lipid Panel, Panel [id number], C ... - Chemistry thyroid stimulating hormone, serum 2.280 u[iU]/mL 0.450-4.500 Office Visit: Acute Visit Sinus Congestion/ Sore Throat Rm #3 - Serology influenza virus A antigen negative Lab Report: CBC With Differential/Platelet, Lipid Panel, Panel [id number], C ... - Chemistry very low density lipoproteins 10 mg/dL 5-40 Lab Report: CBC With Differential/Platelet, Lipid Panel, Panel [id number], C ... - Serology rubella antibody, serum, IgG 9 Office Visit: Acute Visit [address] - Urinalysis urobilinogen, urine, semiquantitative (dipstick) negative Lab Report: CBC With Differential/Platelet, Lipid Panel, Panel [id number], C ... - Hematology basophils as percent of blood leukocytes 1 % 0-3 monocyte count, blood, automated 0.6 X10E3/UL 10*3/uL 0.1-0.9 Lab Report: CBC With Differential/Platelet, Lipid Panel, Panel [id number], C ... - Chemistry immature granulocytes, percentage of total cells, blood 0 % 0-2 Lab Report: CBC With Differential/Platelet, Lipid Panel, Panel [id number], C ... - Hematology lymphocytes as percent of blood leukocytes 32 % 14-46 Lab Report: CBC With Differential/Platelet, Lipid Panel, Panel [id number], C ... - Serology rapid plasma reagin antibody, serum Non Reactive Non Reactive Lab Report: CBC With Differential/Platelet, Lipid Panel, Panel [id number], C ... - Lab chlamydia DNA probe Negative Negative Lab Report: CBC With Differential/Platelet, Lipid Panel, Panel [id number], C ... - Microbiology Neisseria gonorrhoeae DNA probe Negative Negative Lab Report: Hemoglobin A1c, Urine Culture, Routine, Result - Chemistry hemoglobin A1C, blood, as % of total hemoglobin 5.5 % 4.8-5.6 Office Visit: pelvic pain - Chemistry beta HCG, urine, semiquantitative negative Office Visit: Acute Visit [address] - Urinalysis ketones, urine, by test strip negative Lab Report: CBC With Differential/Platelet, Lipid Panel, Panel [id number], C ... - Hematology Eosinophil Absolute Count 0.4 X10E3/UL 10*3/uL 0.0-0.4 Office Visit: Annual / Family Planning Female room 3 - Microbiology bacteria, vaginal smear, wet mount preparation +3 Office Visit: Acute Visit [address] - Urinalysis specific gravity, urine 1.010 Lab Report: CBC With Differential/Platelet, Lipid Panel, Panel [id number], C ... - Hematology mean corpuscular hemoglobin, RBC 30.7 pg 26.6-33.0 neutrophils as percent of blood leukocytes 57 % 40-74 Office Visit: Acute Visit RmSam Mccoy - Urinalysis blood in urine (hemoglobin) by dipstick negative Lab Report: CBC With Differential/Platelet, Lipid Panel, Panel [id number], C ... - Chemistry blood glucose, random 81 mg/dL 65-99 Office Visit: Acute Visit Sinus Congestion/ Sore Throat Rm #3 - Lab influenza B virus antigen negative Office Visit: Acute Visit Cough/Sore throat/ Nausea Rm #2 - Lab Microbial identification kit, rapid strep method negative Office Visit: Acute Visit RmSam Mccoy - Urinalysis urine color yellow Encounters Date Encounter Provider Code Facility 11:21:24 CDT Est Patient Exp Problem - 16083 Sophia Zamorano D.O. CPT-68859 [facility] 08:17:23 CDT Est Patient Exp Problem - 04787 Carlos Trevino MD CPT-11261 [facility] 10:59:57 PACKING MACHINE OPERATOR Est Patient Exp Problem - 60701 Florinda Miller [facility] CPT-02824 [facility] 15:42:08 PACKING MACHINE OPERATOR Est Patient Exp Problem - 03062 Jj Cosme [facility] CPT-99587 [facility] 15:38:28 PACKING MACHINE OPERATOR Est Patient Detailed - 74432 Jj Cosme MACHINE GUIDE BASE WINDER CPT-12813 [facility] 23:24:11 CDT Est Patient Problem Focus - 14242 Mayra Garcia MD CPT-87817 [facility] 11:18:00 PACKING MACHINE OPERATOR Est Patient Exp Problem - 60753 Margo Nolan MD CPT-77468 [facility] 10:24:51 CDT Est Patient Exp Problem - 10443 Janell Corrigan MD CPT-64543 [facility] 11:26:40 CDT Est Patient Exp Problem - 83100 Janell Corrigan MD CPT-08260 [facility] 12:02:52 PACKING MACHINE OPERATOR Ofc Vst, Est Level III Janell Corrigan MD CPT-18961 [facility] 15:32:42 PACKING MACHINE OPERATOR Est Patient Exp Problem - 45753 Doug ACOSTA CPT-88441 [facility] 11:49:46 PACKING MACHINE OPERATOR New Patient Problem Focus - 45556 Doug ACOSTA CPT-11767 [facility] Procedures Code Procedure Name Date Entry Date Standard Description CPT-35831 Urinalysis - Dip only - In House 10:59:57 PACKING MACHINE OPERATOR CPT-84398 Rapid Strep - In House 15:42:08 PACKING MACHINE OPERATOR CPT-24622 Rapid Flu - In House 15:38:30 PACKING MACHINE OPERATOR CPT-60146 Rapid Strep - In House 15:38:30 PACKING MACHINE OPERATOR CPT-23623 Rapid Strep - In House 11:16:42 PACKING MACHINE OPERATOR CPT-A4267 Condom - Male 11:49:46 PACKING MACHINE OPERATOR CPT-57760 Wet Mount - InHouse 11:49:46 PACKING MACHINE OPERATOR CPT-48773 Urinalysis - Dip only - InHouse 11:49:46 PACKING MACHINE OPERATOR CPT-89678 Urinalysis - - InHouse 11:49:46 PACKING MACHINE OPERATOR CPT-42143 Handling of specimen for transfer 11:49:46 PACKING MACHINE OPERATOR CPT-72653 Venipuncture 11:49:46 PACKING MACHINE OPERATOR
--- OUTSIDE RECORDS SUMMARY | 2018-02-06 20:04 | XMS REPORT | Summary of Care ---
Author Author [facility] Organization [facility] Address Unknown Phone Unavailable Encounter WENDI Frankel(SHIVA) [id number] Date(s): 09/06/16 - 09/06/16 [facility] [address] [place] [address]- [phone] Discharge Diagnosis: Edema, peripheral Discharge Diagnosis: Acute UTI Discharge Disposition: Home or Self Care Attending Physician: Clay Henry MD Vital Signs 1 2 3 Most recent to oldest [Reference Range]: 152.4 cm (09/06/16 8:05 PM) Height 98 DegF (09/06/16 11:00 PM) 98.1 DegF (09/06/16 8:05 PM) Temperature Oral [96.4-99.1 DegF] 119/71 mmHg (09/06/16 11:00 PM) 118/85 mmHg (09/06/16 10:00 PM) 114/74 mmHg (09/06/16 9:30 PM) Blood Pressure [90-140/60-90 mmHg] 18 BRMIN (09/06/16 11:00 PM) 20 BRMIN (09/06/16 10:00 PM) 18 BRMIN (09/06/16 9:30 PM) Respiratory Rate [14-20 BRMIN] 92 bpm (09/06/16 8:05 PM) Peripheral Pulse Rate [60-100 bpm] 90.909 kg (09/06/16 8:05 PM) Weight 39.14 m2 (09/06/16 8:05 PM) Body Mass Index Problem List No data available for this section Allergies, Adverse Reactions, Alerts Substance Reaction Severity Status aspirin Active penicillins Active Medications Bactrim DS 800 mg- 160 mg oral tablet 1 tab, PO, BID, X 7 day, # 14 tab, 0 Refill(s) Start Date: 09/06/16 Stop Date: 09/13/16 Status: Ordered hydrochlorothiazide 12.5 mg oral capsule 12.5 mg=1 cap, PO, Daily, PRN edema, # 30 cap, 0 Refill(s) Start Date: 09/06/16 Status: Ordered Saline Flush 0.9% 10 mL, Route: IVP, Drug Form: INJ, Dosing Weight 84.091, kg, PRN, PRN Line Flush , Start date: 09/06/16 19:59:00 CDT, Duration: 30 day, Stop date: 10/06/16 19:58 :00 CDT Notes: (Same as: BD Posiflush) Start Date: 09/06/16 Stop Date: 09/06/16 Status: Discontinued Results ELECTROLYTES Most recent to 1 oldest [Reference Range]: Sodium Lvl [135-145 142 mEq/L mEq/L] (09/06/16 8:22 PM) Potassium Lvl 4.3 mEq/L [3.5-5.1 mEq/L] (09/06/16 8:22 PM) Chloride Lvl [95-109 107 mEq/L mEq/L] (09/06/16 8:22 PM) CO2 [24-32 mEq/L] 29 mEq/L (09/06/16 8:22 PM) AGAP [10.0-20.0 10.3 mEq/L mEq/L] (09/06/16 8:22 PM) CHEM PANEL Most recent to 1 oldest [Reference Range]: Creatinine Lvl 0.79 mg/dL [0.50-1.40 mg/dL] (09/06/16 8:22 PM) eGFR 100 mL/min/1.73m2 1 *NA* (09/06/16 8:22 PM) BUN [7-22 mg/dL] 11 mg/dL (09/06/16 8:22 PM) B/C Ratio [6-25] 14 (09/06/16 8:22 PM) Glucose Lvl [70-99 109 mg/dL mg/dL] *HI* (09/06/16 8:22 PM) Total Protein 7.4 g/dL [6.4-8.4 g/dL] (09/06/16 8:22 PM) Albumin Lvl [3.5-5.0 3.7 g/dL g/dL] (09/06/16 8:22 PM) Globulin [2.7-4.2 3.7 g/dL g/dL] (09/06/16 8:22 PM) A/G Ratio [0.7-1.6] 1.0 (09/06/16 8:22 PM) Calcium Lvl 9.1 mg/dL [8.5-10.5 mg/dL] (09/06/16 8:22 PM) ALT [0-65 unit/L] 40 unit/L (09/06/16 8:22 PM) AST [0-37 unit/L] 20 unit/L (09/06/16 8:22 PM) Alk Phos [39-136 104 unit/L unit/L] (09/06/16 8:22 PM) Bili Total [0.2-1.3 0.2 mg/dL mg/dL] (09/06/16 8:22 PM) 1Result Comment: The eGFR is calculated [...] be mul tiplied by the estimated BMI. CARDIAC ENZYMES Most recent to 1 oldest [Reference Range]: Total CK [12-191 57 unit/L unit/L] (09/06/16 8:22 PM) CK MB [0.5-3.6 <1.0 ng/mL ng/mL] (09/06/16 8:22 PM) CK MB Index <1.8 [0.0-2.5] (09/06/16 8:22 PM) Troponin-I 0.02 ng/mL [0.00-0.40 ng/mL] (09/06/16 8:22 PM) BNP [<=100 pg/mL] 26 pg/mL (09/06/16 8:22 PM) ENDOCRINOLOGY Most recent to 1 oldest [Reference Range]: S Preg [Negative] Negative *NA* (09/06/16 8:22 PM) URINE AND STOOL Most recent to 1 oldest [Reference Range]: UA Turbidity [Clear] Slight *ABN* (09/06/16 8:22 PM) UA Color [Yellow] Light Yellow *NA* (09/06/16 8:22 PM) UA pH [5.0-8.0] 6.0 (09/06/16 8:22 PM) UA Spec Grav 1.019 [<=1.030] (09/06/16 8:22 PM) UA Glucose [Negative Negative mg/dL mg/dL] *NA* (09/06/16 8:22 PM) UA Blood [Negative] Negative (09/06/16 8:22 PM) UA Ketones [Negative Negative mg/dL mg/dL] *NA* (09/06/16 8:22 PM) UA Protein [Negative Negative mg/dL mg/dL] (09/06/16 8:22 PM) UA Urobilinogen <=1.0 mg/dL [0.1-1.0 mg/dL] *NA* (09/06/16 8:22 PM) UA Bili [Negative] Negative *NA* (09/06/16 8:22 PM) UA Leuk Est Small [Negative] *ABN* (09/06/16 8:22 PM) UA Nitrite Negative [Negative] (09/06/16 8:22 PM) UA WBC [0-5 /HPF] 7 /HPF *HI* (09/06/16 8:22 PM) UA RBC [0-2 /HPF] 9 /HPF *HI* (09/06/16 8:22 PM) UA Sq Epi [Few /LPF] Many /LPF *ABN* (09/06/16 8:22 PM) UA Mucus [None Seen Few /LPF /LPF] *NA* (09/06/16 8:22 PM) HEMATOLOGY Most recent to 1 oldest [Reference Range]: WBC [3.7-10.4 K/CMM] 10.7 K/CMM *HI* (09/06/16 8:22 PM) RBC [4.20-5.40 4.61 M/CMM M/CMM] (09/06/16 8:22 PM) Hgb [12.0-16.0 g/dL] 14.1 g/dL (09/06/16 8:22 PM) Hct [36.0-48.0 %] 40.3 % (09/06/16 8:22 PM) MCV [80.0-98.0 fL] 87.4 fL (09/06/16 8:22 PM) MCH [27.0-31.0 pg] 30.6 pg (09/06/16:22 PM) MCHC [32.0-36.0 35.1 g/dL g/dL] (09/06/16 8:22 PM) RDW [11.5-14.5 %] 12.5 % (09/06/16 8:22 PM) Platelet [133-450 351 K/CMM K/CMM] (09/06/16 8:22 PM) MPV [7.4-10.4 fL] 7.7 fL (09/06/16 8:22 PM) Segs [45.0-75.0 %] 60.5 % (09/06/16 8:22 PM) Lymphocytes 26.7 % [20.0-40.0 %] (09/06/16 8:22 PM) Monocytes [2.0-12.0 7.8 % %] (09/06/16 8:22 PM) Eosinophils [0.0-4.0 4.2 % %] *HI* (09/06/16 8:22 PM) Basophils [0.0-1.0 0.8 % %] (09/06/16 8:22 PM) Segs-Bands # 6.4 K/CMM [1.5-8.1 K/CMM] (09/06/16 8:22 PM) Lymphocytes # 2.9 K/CMM [1.0-5.5 K/CMM] (09/06/16 8:22 PM) Monocytes # [0.0-0.8 0.8 K/CMM K/CMM] (09/06/16 8:22 PM) Eosinophils # 0.4 K/CMM [0.0-0.5 K/CMM] (09/06/16 8:22 PM) Basophils # [0.0-0.2 0.1 K/CMM K/CMM] (09/06/16 8:22 PM) PT [12.0-14.7 12.6 seconds seconds] (09/06/16 8:22 PM) INR [0.85-1.17] 0.92 (09/06/16 8:22 PM) D-Dimer <0.27 ug/mL FEU *NA* (09/06/16 8:22 PM) PTT [22.9-35.8 30.6 seconds seconds] (09/06/16 8:22 PM) Immunizations No data available for this section Procedures No data available for this section Social History Social History Type Response Smoking Status Never smoker; Exposure to Tobacco Smoke None; Cigarette Smoking Last 365 Days No; Reg Smoking Cessation Counseling No Assessment and Plan No data available for this section
--- OUTSIDE RECORDS SUMMARY | 2018-02-06 20:04 | XMS REPORT | Continuity of Care Document ---
Author Author [facility] Interface Address Unknown Phone Unavailable Problems Problem Status Onset Date Classification Date Reported Comments Source CP Active 12/17/2017 [facility] COUGHING Active 04/20/2017 [facility] Discharge Diagnosis: Back pain 02/22/2017 02/25/2017 [facility] POSSIBLE KIDNEY INFECTION Active 02/22/2017 [facility] Discharge Diagnosis: Metrorrhagia 11/11/2016 2016 [facility] VAGINAL BLEEDING Active 10/21/2016 [facility] Discharge Diagnosis: Edema, peripheral 09/06/2016 09/09/2016 [facility] Discharge Diagnosis: Acute UTI 09/06/2016 09/09/2016 [facility] SOB, CP Active 09/06/2016 [facility] ANXIETY Active 05/10/2014 [facility] CHEST PAIN Active 05/10/2014 [facility] High cholesterol Active Problem 07/27/2017 [facility] Medications Medication Details Route Status Patient Instructions Ordering Provider Order Date Source Tylenol 650 mg, Route: PO, Drug form: TAB, ONCE, Dosing Weight 91.506, kg, Priority: STAT, Start date: 02/22/17 20:40:00 GOPHERMAN, Stop date: 02/22/17 20:40:00 GOPHERMAN Inactive 02/23/2017 [facility] Saline Flush 0.9% 10 mL, Route: IVP, Drug Form: INJ, Dosing Weight 90.318, kg, PRN, PRN Line Flush, Start date: 02/22/17 19:44:00 GOPHERMAN, Duration: 1 day, Stop date: 02/23/17 19:43:00 CSTNotes: (Same as: BD Posiflush) Inactive 02/23/2017 [facility] Saline Flush 0.9% 10 mL, Route: IVP, Drug Form: INJ, Dosing Weight 90.318, kg, PRN, PRN Line Flush, Start date: 11/11/16 19:50:00 CDT, Duration: 1 day, Stop date: 11/12/16 19:49:00 CDTNotes: (Same as: BD Posiflush) Inactive 11/12/2016 [facility] Hydrochlorothiazide 12.5 MG Oral Capsule 12.5 mg=1 cap, PO, Daily, PRN edema, # 30 cap, 0 Refill(s) Active 09/07/2016 [facility] Sulfamethoxazole 800 MG / Trimethoprim 160 MG Oral Tablet [Bactrim] 1 tab, PO, BID, X 7 day, # 14 tab, 0 Refill(s) Active 09/07/2016 [facility] Saline Flush 0.9% 10 mL, Route: IVP, Drug Form: INJ, Dosing Weight 84.091, kg, PRN, PRN Line Flush, Start date: 09/06/16 19:59:00 CDT, Duration: 30 day, Stop date: 10/06/16 19:58:00 CDTNotes: (Same as: BD Posiflush) Inactive 09/07/2016 [facility] Allergies, Adverse Reactions, Alerts Substance Category Reaction Severity Reaction type Status Date Reported Comments Source penicillins Assertion Drug allergy Active [facility] aspirin Assertion Drug allergy Active [facility] Immunizations Immunization Date Given Site Status Last Updated Comments Source Results Order Name Results Value Reference Range Date Interpretation Comments Source Chest 1view DX Chest 1view DX PROCEDURE: Chest x-ray. Clinical Indication: Chest pain - L chest pain x 3 days Comparison: September 06. FINDINGS: Normal cardiomediastinal silhouette. No pneumonia, effusion, or pneumothorax. No acute osseous abnormalities. IMPRESSION: No focal lung disease. SL: [id number] 12/17/2017 - - Read by: Timothy Ochoa MD Dictated Date/time: 12/17/17 15:48 Electronically Signed by: Timothy Ochoa MD 12/17/17 15:51 FINAL REPORT [facility] MOLECULAR DIAGNOSTIC N gonorrhea by Amp Det (APTIMA) Negative *NA* (02/22/17 9:03 PM) Negative 02/23/2017 [facility] MOLECULAR DIAGNOSTIC C trachomatis by Amp Det (APTIMA) Negative *NA* (02/22/17 9:03 PM) Negative 02/23/2017 [facility] MOLECULAR DIAGNOSTIC Source APTIMA Vaginal *NA* (02/22/17 9:03 PM) 02/23/2017 [facility] CHEM PANEL B/C Ratio 16 6 - 25 02/23/2017 [facility] CHEM PANEL AGAP 10.5 meq/L 10.0 - 20.0 02/23/2017 [facility] CHEM PANEL A/G Ratio 0.9 0.7 - 1.6 02/23/2017 [facility] CHEM PANEL Globulin 4.2 g/dL 2.7 - 4.2 02/23/2017 [facility] CHEM PANEL eGFR 90 mL/min/1.73m2 02/23/2017 Result Comment: The eGFR is calculated using the [...] from the National Kidney Disease Education Program (NKDEP) which additionally recommends that when the eGFR is used in patients with extremes of body mass index for purposes of drug dosing, the eGFR should be multiplied by the estimated BMI. [facility] CHEM PANEL ALT 21 unit/L 0 - 65 02/23/2017 [facility] CHEM PANEL Albumin Lvl 3.7 g/dL 3.5 - 5.0 02/23/2017 [facility] CHEM PANEL Chloride Lvl 105 meq/L 95 - 109 02/23/2017 [facility] CHEM PANEL Potassium Lvl 4.5 meq/L 3.5 - 5.1 02/23/2017 [facility] CHEM PANEL Sodium Lvl 139 meq/L 135 - 145 02/23/2017 [facility] CHEM PANEL Creatinine Lvl 0.85 mg/dL 0.50 - 1.40 02/23/2017 [facility] CHEM PANEL Bili Total 0.2 mg/dL 0.2 - 1.3 02/23/2017 [facility] CHEM PANEL Alk Phos 100 unit/L 39 - 136 02/23/2017 [facility] CHEM PANEL AST 16 unit/L 0 - 37 02/23/2017 [facility] CHEM PANEL Total Protein 7.9 g/dL 6.4 - 8.4 02/23/2017 [facility] CHEM PANEL Calcium Lvl 9.3 mg/dL 8.5 - 10.5 02/23/2017 [facility] CHEM PANEL CO2 28 meq/L 24 - 32 02/23/2017 [facility] CHEM PANEL BUN 14 mg/dL 7 - 22 02/23/2017 [facility] CHEM PANEL Glucose Lvl 110 mg/dL 70 - 99 02/23/2017 [facility] CHEM PANEL Lipase Lvl 163 unit/L 73 - 393 02/23/2017 [facility] HEMATOLOGY RBC 4.92 M/CMM 4.20 - 5.40 02/23/2017 [facility] HEMATOLOGY Hgb 14.6 g/dL 12.0 - 16.0 02/23/2017 [facility] WBC 10.7 K/CMM 3.7 - 10.4 02/23/2017 [facility] HEMATOLOGY MCV 87.3 fL 80.0 - 98.0 02/23/2017 [facility] MCH 29.6 pg 27.0 - 31.0 02/23/2017 [facility] Hct 42.9 % 36.0 - 48.0 02/23/2017 [facility] MCHC 33.9 g/dL 32.0 - 36.0 02/23/2017 [facility] Platelet 394 K/CMM 133 - 450 02/23/2017 [facility] RDW 12.7 % 11.5 - 14.5 02/23/2017 [facility] HEMATOLOGY MPV 7.8 fL 7.4 - 10.4 02/23/2017 [facility] HEMATOLOGY Monocytes # 0.7 K/CMM 0.0 - 0.8 02/23/2017 [facility] HEMATOLOGY Eosinophils # 0.3 K/CMM 0.0 - 0.5 02/23/2017 [facility] HEMATOLOGY Basophils # 0.1 K/CMM 0.0 - 0.2 02/23/2017 [facility] HEMATOLOGY Lymphocytes # 3.0 K/CMM 1.0 - 5.5 02/23/2017 [facility] HEMATOLOGY Eosinophils 3.2 % 0.0 - 4.0 02/23/2017 [facility] HEMATOLOGY Segs-Bands # 6.5 K/CMM 1.5 - 8.1 02/23/2017 [facility] HEMATOLOGY Basophils 0.8 % 0.0 - 1.0 02/23/2017 [facility] HEMATOLOGY Segs 61.4 % 45.0 - 75.0 02/23/2017 [facility] HEMATOLOGY Monocytes 6.5 % 2.0 - 12.0 02/23/2017 [facility] HEMATOLOGY Lymphocytes 28.1 % 20.0 - 40.0 02/23/2017 [facility] URINE AND STOOL UA Urobilinogen <=1.0 mg/dL 0.1 - 1.0 02/23/2017 [facility] URINE AND STOOL UA Nitrite Negative (02/22/17 7:59 PM) Negative 02/23/2017 [facility] URINE AND STOOL UA WBC 1 /HPF 0 - 5 02/23/2017 [facility] URINE AND STOOL UA Bacteria Occasional /HPF None Seen /HPF 02/23/2017 [facility] URINE AND STOOL UA RBC 2 /HPF 0 - 2 02/23/2017 [facility] URINE AND STOOL UA Leuk Est Trace *ABN* (02/22/17 7:59 PM) Negative 02/23/2017 [facility] URINE AND STOOL UA Sq Epi Few /LPF Few /LPF 02/23/2017 [facility] URINE AND STOOL UA Protein Negative mg/dL Negative mg/dL 02/23/2017 [facility] URINE AND STOOL UA pH 6.0 5.0 - 8.0 02/23/2017 [facility] URINE AND STOOL UA Bili Negative *NA* (02/22/17 7:59 PM) Negative 02/23/2017 [facility] URINE AND STOOL UA Blood Moderate *ABN* (02/22/17 7:59 PM) Negative 02/23/2017 [facility] URINE AND STOOL UA Ketones Negative mg/dL Negative mg/dL 02/23/2017 [facility] URINE AND STOOL UA Turbidity Clear (02/22/17 7:59 PM) Clear 02/23/2017 [facility] URINE AND STOOL UA Color Light Yellow *NA* (02/22/17 7:59 PM) Yellow 02/23/2017 [facility] URINE AND STOOL UA Glucose Negative mg/dL Negative mg/dL 02/23/2017 [facility] URINE AND STOOL UA Spec Grav 1.006 <=1.030 02/23/2017 [facility] URINE CHEM U Preg Negative (02/22/17 7:59 PM) Negative 02/23/2017 [facility] CHEM PANEL A/G Ratio 0.9 0.7 - 1.6 11/12/2016 [facility] CHEM PANEL Globulin 4.2 g/dL 2.7 - 4.2 11/12/2016 [facility] CHEM PANEL B/C Ratio 12 6 - 25 11/12/2016 [facility] CHEM PANEL AGAP 9.9 meq/L 10.0 - 20.0 11/12/2016 [facility] CHEM PANEL eGFR 83 mL/min/1.73m2 11/12/2016 Result Comment: The eGFR is calculated using the [...] from the National Kidney Disease Education Program (NKDEP) which additionally recommends that when the eGFR is used in patients with extremes of body mass index for purposes of drug dosing, the eGFR should be multiplied by the estimated BMI. [facility] CHEM PANEL Alk Phos 72 unit/L 39 - 136 11/12/2016 [facility] CHEM PANEL AST 16 unit/L 0 - 37 11/12/2016 [facility] CHEM PANEL Bili Total 0.2 mg/dL 0.2 - 1.3 11/12/2016 [facility] CHEM PANEL Total Protein 8.0 g/dL 6.4 - 8.4 11/12/2016 [facility] CHEM PANEL Calcium Lvl 9.2 mg/dL 8.5 - 10.5 11/12/2016 [facility] CHEM PANEL ALT 27 unit/L 0 - 65 11/12/2016 [facility] CHEM PANEL Albumin Lvl 3.8 g/dL 3.5 - 5.0 11/12/2016 [facility] CHEM PANEL Glucose Lvl 89 mg/dL 70 - 99 11/12/2016 [facility] CHEM PANEL Creatinine Lvl 0.92 mg/dL 0.50 - 1.40 11/12/2016 [facility] CHEM PANEL BUN 11 mg/dL 7 - 22 11/12/2016 [facility] CHEM PANEL Potassium Lvl 3.9 meq/L 3.5 - 5.1 11/12/2016 [facility] CHEM PANEL Sodium Lvl 139 meq/L 135 - 145 11/12/2016 [facility] CHEM PANEL CO2 30 meq/L 24 - 32 11/12/2016 [facility] CHEM PANEL Chloride Lvl 103 meq/L 95 - 109 11/12/2016 [facility] ENDOCRINOLOGY S Preg Negative *NA* (11/11/16 8:08 PM) Negative 11/12/2016 [facility] HEMATOLOGY Basophils # 0.1 K/CMM 0.0 - 0.2 11/12/2016 [facility] HEMATOLOGY Eosinophils # 0.3 K/CMM 0.0 - 0.5 11/12/2016 [facility] HEMATOLOGY Eosinophils 2.9 % 0.0 - 4.0 11/12/2016 [facility] HEMATOLOGY Basophils 0.9 % 0.0 - 1.0 11/12/2016 [facility] HEMATOLOGY Lymphocytes 35.2 % 20.0 - 40.0 11/12/2016 [facility] HEMATOLOGY Segs 54.5 % 45.0 - 75.0 11/12/2016 [facility] HEMATOLOGY Monocytes 6.5 % 2.0 - 12.0 11/12/2016 [facility] HEMATOLOGY Segs-Bands # 5.3 K/CMM 1.5 - 8.1 11/12/2016 [facility] HEMATOLOGY Monocytes # 0.6 K/CMM 0.0 - 0.8 11/12/2016 [facility] HEMATOLOGY Lymphocytes # 3.4 K/CMM 1.0 - 5.5 11/12/2016 [facility] HEMATOLOGY WBC 9.7 K/CMM 3.7 - 10.4 11/12/2016 [facility] HEMATOLOGY Hgb 13.1 g/dL 12.0 - 16.0 11/12/2016 [facility] HEMATOLOGY RBC 4.22 M/CMM 4.20 - 5.40 11/12/2016 [facility] HEMATOLOGY Hct 37.4 % 36.0 - 48.0 11/12/2016 [facility] HEMATOLOGY MCHC 35.1 g/dL 32.0 - 36.0 11/12/2016 [facility] HEMATOLOGY MCH 31.1 pg 27.0 - 31.0 11/12/2016 [facility] HEMATOLOGY Platelet 417 K/CMM 133 - 450 11/12/2016 [facility] HEMATOLOGY RDW 12.8 % 11.5 - 14.5 11/12/2016 [facility] HEMATOLOGY MPV 7.7 fL 7.4 - 10.4 11/12/2016 [facility] HEMATOLOGY MCV 88.5 fL 80.0 - 98.0 11/12/2016 [facility] CARDIAC ENZYMES CK MB Index null 0.0 - 2.5 09/07/2016 [facility] CARDIAC ENZYMES CK MB null 0.5 - 3.6 09/07/2016 [facility] CARDIAC ENZYMES Total CK 57 unit/L 12 - 191 09/07/2016 [facility] CARDIAC ENZYMES BNP 26 pg/mL <=100 pg/mL 09/07/2016 [facility] CARDIAC ENZYMES Troponin-I 0.02 ng/mL 0.00 - 0.40 09/07/2016 [facility] CHEM PANEL eGFR 100 mL/min/1.73m2 09/07/2016 Result Comment: The eGFR is calculated using the [...] from the National Kidney Disease Education Program (NKDEP) which additionally recommends that when the eGFR is used in patients with extremes of body mass index for purposes of drug dosing, the eGFR should be multiplied by the estimated BMI. [facility] CHEM PANEL A/G Ratio 1.0 0.7 - 1.6 09/07/2016 [facility] CHEM PANEL Globulin 3.7 g/dL 2.7 - 4.2 09/07/2016 [facility] CHEM PANEL AGAP 10.3 meq/L 10.0 - 20.0 09/07/2016 [facility] CHEM PANEL Bili Total 0.2 mg/dL 0.2 - 1.3 09/07/2016 [facility] CHEM PANEL B/C Ratio 14 6 - 25 09/07/2016 [facility] CHEM PANEL Total Protein 7.4 g/dL 6.4 - 8.4 09/07/2016 [facility] CHEM PANEL Albumin Lvl 3.7 g/dL 3.5 - 5.0 09/07/2016 [facility] CHEM PANEL AST 20 unit/L 0 - 37 09/07/2016 [facility] CHEM PANEL ALT 40 unit/L 0 - 65 09/07/2016 [facility] CHEM PANEL Alk Phos 104 unit/L 39 - 136 09/07/2016 [facility] CHEM PANEL Potassium Lvl 4.3 meq/L 3.5 - 5.1 09/07/2016 [facility] CHEM PANEL Sodium Lvl 142 meq/L 135 - 145 09/07/2016 [facility] CHEM PANEL Creatinine Lvl 0.79 mg/dL 0.50 - 1.40 09/07/2016 [facility] CHEM PANEL Chloride Lvl 107 meq/L 95 - 109 09/07/2016 [facility] CHEM PANEL CO2 29 meq/L 24 - 32 09/07/2016 [facility] CHEM PANEL Calcium Lvl 9.1 mg/dL 8.5 - 10.5 09/07/2016 [facility] CHEM PANEL Glucose Lvl 109 mg/dL 70 - 99 09/07/2016 [facility] CHEM PANEL BUN 11 mg/dL 7 - 22 09/07/2016 [facility] ENDOCRINOLOGY S Preg Negative *NA* (09/06/16 8:22 PM) Negative 09/07/2016 [facility] HEMATOLOGY Monocytes # 0.8 K/CMM 0.0 - 0.8 09/07/2016 [facility] HEMATOLOGY Eosinophils # 0.4 K/CMM 0.0 - 0.5 09/07/2016 [facility] HEMATOLOGY Basophils # 0.1 K/CMM 0.0 - 0.2 09/07/2016 [facility] HEMATOLOGY Monocytes 7.8 % 2.0 - 12.0 09/07/2016 [facility] HEMATOLOGY Eosinophils 4.2 % 0.0 - 4.0 09/07/2016 [facility] HEMATOLOGY Basophils 0.8 % 0.0 - 1.0 09/07/2016 [facility] HEMATOLOGY Segs-Bands # 6.4 K/CMM 1.5 - 8.1 09/07/2016 [facility] HEMATOLOGY Lymphocytes # 2.9 K/CMM 1.0 - 5.5 09/07/2016 [facility] HEMATOLOGY Segs 60.5 % 45.0 - 75.0 09/07/2016 [facility] HEMATOLOGY Lymphocytes 26.7 % 20.0 - 40.0 09/07/2016 [facility] HEMATOLOGY D-Dimer null 09/07/2016 [facility] PT 12.6 s 12.0 - 14.7 09/07/2016 [facility] HEMATOLOGY INR 0.92 0.85 - 1.17 09/07/2016 [facility] HEMATOLOGY Hct 40.3 % 36.0 - 48.0 09/07/2016 [facility] MCV 87.4 fL 80.0 - 98.0 09/07/2016 [facility] RBC 4.61 M/CMM 4.20 - 5.40 09/07/2016 [facility] HEMATOLOGY Hgb 14.1 g/dL 12.0 - 16.0 09/07/2016 [facility] WBC 10.7 K/CMM 3.7 - 10.4 09/07/2016 [facility] MCH 30.6 pg 27.0 - 31.0 09/07/2016 [facility] MCHC 35.1 g/dL 32.0 - 36.0 09/07/2016 [facility] HEMATOLOGY Platelet 351 K/CMM 133 - 450 09/07/2016 [facility] HEMATOLOGY RDW 12.5 % 11.5 - 14.5 09/07/2016 [facility] HEMATOLOGY MPV 7.7 fL 7.4 - 10.4 09/07/2016 [facility] HEMATOLOGY PTT 30.6 s 22.9 - 35.8 09/07/2016 [facility] URINE AND STOOL UA Urobilinogen <=1.0 mg/dL 0.1 - 1.0 09/07/2016 [facility] URINE AND STOOL UA Color Light Yellow *NA* (09/06/16 8:22 PM) Yellow 09/07/2016 [facility] URINE AND STOOL UA Protein Negative mg/dL Negative mg/dL 09/07/2016 [facility] URINE AND STOOL UA pH 6.0 5.0 - 8.0 09/07/2016 [facility] URINE AND STOOL UA Bili Negative *NA* (09/06/16 8:22 PM) Negative 09/07/2016 [facility] URINE AND STOOL UA Ketones Negative mg/dL Negative mg/dL 09/07/2016 [facility] URINE AND STOOL UA Leuk Est Small *ABN* (09/06/16 8:22 PM) Negative 09/07/2016 [facility] URINE AND STOOL UA Spec Grav 1.019 <=1.030 09/07/2016 [facility] URINE AND STOOL UA Glucose Negative mg/dL Negative mg/dL 09/07/2016 [facility] URINE AND STOOL UA Turbidity Slight *ABN* (09/06/16 8:22 PM) Clear 09/07/2016 [facility] URINE AND STOOL UA Mucus Few /LPF None Seen /LPF 09/07/2016 [facility] URINE AND STOOL UA Nitrite Negative (09/06/16 8:22 PM) Negative 09/07/2016 [facility] URINE AND STOOL UA Blood Negative (09/06/16 8:22 PM) Negative 09/07/2016 [facility] URINE AND STOOL UA RBC 9 /HPF 0 - 2 09/07/2016 [facility] URINE AND STOOL UA WBC 7 /HPF 0 - 5 09/07/2016 [facility] URINE AND STOOL UA Sq Epi Many /LPF Few /LPF 09/07/2016 [facility] Chest 2 views DX Chest 2 views DX Clinical Indication: Shortness of breath. Comparison: None FINDINGS: PA and lateral views of the chest have been provided. Lungs are clear. Heart size is normal. Central pulmonary vasculature appears normal. No effusion. No pneumothorax. No radiographically apparent acute osseous abnormality. IMPRESSION: 1. No radiographically apparent acute cardiopulmonary process. SL: [id number] 09/06/2016 - - Read by: Ela Dominguez MD Dictated Date/time: 09/06/16 21:18 Electronically Signed by: Ela Dominguez MD 09/06/16 21:19 FINAL REPORT [facility] Vital Signs Vital Sign Value Date Comments Source Systolic (mm Hg) 126 02/23/2017 [facility] Diastolic (mm Hg) 85 02/23/2017 [facility] Respitory Rate 17 02/23/2017 [facility] Heart Rate 88 02/23/2017 [facility] Systolic (mm Hg) 118 02/23/2017 [facility] Diastolic (mm Hg) 77 02/23/2017 [facility] Heart Rate 95 02/23/2017 [facility] Respitory Rate 18 02/23/2017 [facility] Respitory Rate 18 02/23/2017 [facility] Heart Rate 86 02/23/2017 [facility] Systolic (mm Hg) 118 02/23/2017 [facility] Diastolic (mm Hg) 81 02/23/2017 [facility] BMI Calculated 39.4 02/23/2017 [facility] Height 152.4 cm 02/23/2017 [facility] Weight 91.506 02/23/2017 [facility] Temperature Oral (F) 98.1 F 02/23/2017 [facility] Temperature Oral (F) 98.4 F 11/12/2016 [facility] Heart Rate 93 11/12/2016 [facility] Systolic (mm Hg) 111 11/12/2016 [facility] Diastolic (mm Hg) 75 11/12/2016 [facility] Respitory Rate 18 11/12/2016 [facility] Systolic (mm Hg) 121 11/12/2016 [facility] Diastolic (mm Hg) 78 11/12/2016 [facility] Respitory Rate 20 11/12/2016 [facility] Systolic (mm Hg) 122 11/12/2016 [facility] Diastolic (mm Hg) 80 11/12/2016 [facility] Respitory Rate 20 11/12/2016 [facility] Heart Rate 89 11/11/2016 [facility] Weight 90.318 11/11/2016 [facility] Height 152.4 cm 11/11/2016 [facility] BMI Calculated 38.89 11/11/2016 [facility] Temperature Oral (F) 98.2 F 11/11/2016 [facility] Systolic (mm Hg) 119 09/07/2016 [facility] Diastolic (mm Hg) 71 09/07/2016 [facility] Respitory Rate 18 09/07/2016 [facility] Temperature Oral (F) 98 F 09/07/2016 [facility] Respitory Rate 20 09/07/2016 [facility] Systolic (mm Hg) 118 09/07/2016 [facility] Diastolic (mm Hg) 85 09/07/2016 [facility] Respitory Rate 18 09/07/2016 [facility] Systolic (mm Hg) 114 09/07/2016 [facility] Diastolic (mm Hg) 74 09/07/2016 [facility] Heart Rate 92 09/07/2016 [facility] Temperature Oral (F) 98.1 F 09/07/2016 [facility] Height 152.4 cm 09/07/2016 [facility] BMI Calculated 39.14 09/07/2016 [facility] Weight 90.909 09/07/2016 [facility] Systolic (mm Hg) 119 05/11/2014 [facility] Diastolic (mm Hg) 82 05/11/2014 [facility] Heart Rate 85 05/11/2014 [facility] Respitory Rate 20 05/11/2014 [facility] Temperature Oral (F) 98.1 F 05/11/2014 [facility] Weight 84.091 05/11/2014 [facility] BMI Calculated 36.21 05/11/2014 [facility] Height 152.4 cm 05/11/2014 [facility] Temperature Oral (F) 97.7 F 05/11/2014 [facility] Respitory Rate 24 05/11/2014 [facility] Weight 84.091 05/11/2014 [facility] Diastolic (mm Hg) 91 05/11/2014 [facility] Heart Rate 113 05/11/2014 [facility] Systolic (mm Hg) 143 05/11/2014 [facility] Height 152.4 cm 05/11/2014 [facility] BMI Calculated 36.21 05/11/2014 [facility] Encounters Location Location Details Encounter Type Encounter Number Reason For Visit Attending Provider ADM Date DC Date Status Source [facility] [id number] Naty Carreno 05/11/2014 05/11/2014 [facility] [id number] Naty Carreno 05/11/2014 05/11/2014 [facility] [id number] Clay Henry 09/07/2016 09/07/2016 [facility] Emergency [id number] Geovanny Leung 11/11/2016 11/12/2016 [facility] Emergency [id number] Ml Cedillo 02/23/2017 02/23/2017 [facility] Emergency [id number] Tre Singh III 04/21/2017 04/21/2017 [facility] Procedures Procedure Code Date Perfomer Comments Source
--- OUTSIDE RECORDS SUMMARY | 2018-02-06 20:04 | XMS REPORT | Summary of Care ---
Author Author [facility] Organization [facility] Address Unknown Phone Unavailable Encounter [facility]am[facility]_[id number](FIN) [id number] Date(s): 04/20/17 - 04/20/17 [facility] [address] [place] [address]- Discharge Disposition: Not Treated Attending Physician: Tre Bryant MD Vital Signs No data available for this section Problem List Condition Effective Dates Status Health Status Informant High Active cholesterol(Confirme d) Allergies, Adverse Reactions, Alerts Substance Reaction Severity Status penicillins Active aspirin Active Medications No data available for this section Results No data available for this section Immunizations No data available for this section Procedures No data available for this section Social History Social History Type Response Smoking Status Never smoker; Exposure to Tobacco Smoke None; Cigarette Smoking Last 365 Days No; Reg Smoking Cessation Counseling No entered on: 02/22/17 Assessment and Plan No data available for this section
--- OUTSIDE RECORDS SUMMARY | 2018-02-06 20:04 | XMS REPORT ---
Author Author [facility] Address Unknown Phone Unavailable Care Team Providers Care Retail Administrative Assistant Name Role Phone Guy YAN Unavailable Unavailable Problems This patient has no known problems. Allergies, Adverse Reactions, Alerts This patient has no known allergies or adverse reactions. Medications This patient has no known medications. Results Test Description Test Time Test Comments Text Results Atomic Results Result Comments CHEST 2 VIEWS [place] [address] Patient Name: DOMENICO NEVAREZ MR #: [id number] : 1985 Age/Sex: 31/F Req #: [id number] Adm Physician: Ordered by: KATH YAN MD Report #: [id number] Location: ER Room/Bed: Procedure: [id number] DX/CHEST 2 VIEWS Exam Date: 04/21/17 Exam Time: 2020 REPORT STATUS: Signed EXAM: CHEST 2 VIEWS, PA and lateral DATE: 04/21/2017 9:10 PM Time stamp on exam: 2114 hours INDICATION: Cough, congestion COMPARISON: None FINDINGS: LINES/TUBES: None LUNGS: No consolidations or edema. PLEURA: No effusions or pneumothorax. HEART AND MEDIASTINUM: Normal size and contour. BONES AND SOFT TISSUES: No acute findings. IMPRESSION: No evidence of pneumonia. Signed by: Dr. Bryson Cain M.D. on 04/21/2017 9:46 PM Dictated By: BRYSON CAIN MD 45 Transcribed By: SILVIA on 04/21/172145 COPY TO: KATH YAN MD
--- OUTSIDE RECORDS SUMMARY | 2018-02-06 20:04 | XMS REPORT | Summary of Care ---
Author Organization Unknown Address Unknown Phone Unavailable Encounter [facility](SHIVA) [id number] Date(s): 05/11/14 - 05/11/[address] Discharge Disposition: Not Seen Physician Attending: Naty Carreno MD Reason for Visit CHEST PAIN Vital Signs Most recent to 1 oldest [Reference Range]: Height 152.4 cm (05/11/14 12:22 AM) Temperature Oral 97.7 DegF [96.4-99.1 DegF] (05/11/14 12:22 AM) Systolic Blood 143 mmHg Pressure [90-140 *HI* mmHg] (05/11/14 12:22 AM) Diastolic Blood 91 mmHg Pressure [60-90 *HI* mmHg] (05/11/14 12:22 AM) Respiratory Rate 24 BRMIN [14-20 BRMIN] *HI* (05/11/14 12:22 AM) Peripheral Pulse 113 bpm Rate [60-100 bpm] *HI* (05/11/14 12:22 AM) Weight 84.091 kg (05/11/14 12:22 AM) Body Mass Index 36.21 m2 (05/11/14 12:22 AM) Problem List No data available for this section Allergies, Adverse Reactions, Alerts Substance Reaction Severity Status aspirin Active penicillins Active Medications No data available for this section Medications Administered During Your Visit No data available for this section Immunizations No data available for this section
[2018-02-06 20:41] LABS: BASOPHILS # (AUTO) 0.1 (0.0-0.1); BASOPHILS % 0.8 % (0.0-1.0); EOSINOPHILS # (AUTO) 0.2 (0.0-0.4); EOSINOPHILS % 1.9 % (0.0-6.0); HEMATOCRIT 41.3 % (34.2-44.1); HEMOGLOBIN 13.9 g/dL (12.0-16.0); LYMPHOCYTES # (AUTO) 2.7 (1.0-3.2); LYMPHOCYTES % 24.6 % (18.0-39.1); MEAN CORPUSCULAR HEMOGLOBIN 29.6 pg (28-32); MEAN CORPUSCULAR HGB CONC 33.7 g/dL (31-35); MEAN CORPUSCULAR VOLUME 87.9 fL (81-99); MONOCYTES # (AUTO) 0.8 (0.2-0.8); NEUTROPHILS % 65.3 % (38.7-80.0); PLATELET COUNT 385 x10e3/uL (140-360); RED CELL DISTRIBUTION WIDTH 12.5 % (11.7-14.4)
[2018-02-06 20:42] LABS: BILIRUBIN,URINE NEGATIVE (NEGATIVE); CLARITY,URINE CLEAR (CLEAR); COLOR,URINE YELLOW (YELLOW); KETONES,URINE NEGATIVE (NEGATIVE); LEUKOCYTE ESTERASE ,URINE NEGATIVE (NEGATIVE); NITRITE,URINE NEGATIVE (NEGATIVE); PREGNANCY TEST, URINE NEGATIVE (NEGATIVE); PROTEIN,URINE DIPSTICK NEGATIVE (NEGATIVE); URINE UROBILINOGEN 0.2 mg/dL (0.2 - 1)
[2018-02-06 20:45] LABS: AMPHETAMINES SCREEN,URINE NEGATIVE (NEGATIVE); BENZODIAZEPINES SCREEN,URINE NEGATIVE (NEGATIVE); PHENCYCLIDINE SCREEN,URINE NEGATIVE (NEGATIVE)
[2018-02-06 20:51] LABS: ALANINE AMINOTRANSFERASE 12 IU/L (0-55); ALBUMIN 4.3 g/dL (3.5-5.0); ALBUMIN/GLOBULIN RATIO 1.3 (0.8-2.0); ALKALINE PHOSPHATASE 94 IU/L (40-150); ANION GAP 13.7 mmol/L (8-16); BLOOD UREA NITROGEN 16 mg/dL (7-26); BUN/CREATININE RATIO 20 (6-25); CALCIUM 10.2 mg/dL (8.4-10.2); CARBON DIOXIDE 24 mmol/L (22-29); CHLORIDE 104 mmol/L (98-107); CREATINE KINASE 65 IU/L (29-168); CREATININE, SERUM 0.82 mg/dL (0.57-1.11); EST GLOMERULAR FILTRATION RATE > 60 ML/MIN (60-); GLUCOSE 95 mg/dL (74-118); POTASSIUM 3.7 mmol/L (3.5-5.1); SODIUM 138 mmol/L (136-145)
[2018-02-06 20:52] LABS: BACTERIA,URINE MANY /HPF; EPITHELIAL CELLS,URINE MODERATE /LPF
[2018-02-06 20:53] LABS: TRANSITIONAL EPI CELLS,URINE FEW
--- NOTE | 2018-02-06 21:17 | Diagnostic Imaging Report ---
EXAMINATION: PA and lateral views of the chest. COMPARISON: Chest two views 04/21/2017 CLINICAL HISTORY: Chest pain DISCUSSION: Lines/tubes: None. Lungs: The lungs are well inflated and clear. There is no evidence of pneumonia or pulmonary edema. Pleura: There is no pleural effusion or pneumothorax. Heart and mediastinum: Cardiomediastinal silhouette is unremarkable. Pulmonary vasculature is normal. Bones and soft tissues: No acute bony abnormalities. IMPRESSION: No acute cardiopulmonary abnormalities. Signed by: Dr. Alli Amaya M.D. on 02/06/2018 9:14 PM
[2018-02-06 22:48] VITALS: BP 129/76
== END 2018-02-06 22:49 | disposition home or self-care (01) ==
LOC: ER 20:01
DX: M54.6 Pain in thoracic spine (principal); M54.5 Low back pain; S23.3XXA Sprain of ligaments of thoracic spine, initial encounter; S29.012A Strain of muscle and tendon of back wall of thorax, initial encounter
CPT/HCPCS: 36415; 71046; 80053; 80307; 81001; 81025; 82550; 82553; 84484; 85025; 99283